=== PATIENT | male | born 2000 | race American Indian/Alaskan Native ===

== ENCOUNTER 2020-02-18 21:27 | Emergency (ER) | payer BC ==
[2020-02-18 21:36] VITALS: BP 143/87; PULSE 82
[2020-02-18] MEDS ORDERED: Ibuprofen 600 MG Tab PO ONE (21:55)
--- NOTE | 2020-02-18 21:56 | EDM.PDOC ---
ED HPI GENERAL MEDICAL PROBLEM - General Chief Complaint: Lower Extremity Injury/Pain Stated Complaint: RT FOOT PAIN Time Seen by Provider: 02/18/20 21:55 Source of Information: Reports: Patient History Limitations: Reports: No Limitations - History of Present Illness INITIAL COMMENTS - FREE TEXT/NARRATIVE: Patient comes emergency department today with complaints of an injury to his right foot. Approximately 1 hour prior to arrival the patient was jumping off the end of a dock when he landed on a pole the sole of his foot traverse leg along the mid forefoot on the sole of it. He has had some pain since that time. He denies any paresthesias. Denies any other injury other than to the mid sole of his foot. No ankle pain no other right lower extremity.. No paresthesias. He has not tried anything for pain. This happened about an hour prior to arrival. Right Foot Pain Score (Numeric/FACES): 4 - Related Data Allergies Allergy/AdvReac Type Severity Reaction Status Date / Time venom-honey bee Allergy Edema Verified 02/18/20 21:33 Home Meds: Home Meds . [No Known Home Meds] 01/13/15 [History] Past Medical History - Past Health History Medical/Surgical History: Denies Medical/Surgical History Social & Family History - Family History Family Medical History: Noncontributory - Tobacco Use Smoking Status *Q: Never Smoker - Caffeine Use Caffeine Use: Reports: Coffee, Energy Drinks, Soda - Recreational Drug Use Recreational Drug Use: No Review of Systems - Review of Systems Review Of Systems: Comprehensive ROS is negative, except as noted in HPI. ED EXAM, GENERAL - Physical Exam Exam: See Below Exam Limited By: No Limitations General Appearance: Alert, WD/WN, No Apparent Distress Respiratory/Chest: No Respiratory Distress Cardiovascular: Normal Peripheral Pulses Peripheral Pulses: 2+: Radial (L), Radial (R), Posterior Tibial (L), Posterior Tibial (R), Dorsalis Pedis (L), Dorsalis Pedis (R) Extremities: Normal Inspection (Really normal inspection of the right foot other than some tenderness along the first mid metatarsal region. There is no breaks in the skin. There is no overt bony deformity. There is no bruising swelling ecchymosis. Rest of the foot is atraumatic.), Normal Range of Motion Neurological: Alert, Oriented, Normal Cognition, No Motor/Sensory Deficits Skin Exam: Warm, Dry, Intact, Normal Color Course - Vital Signs Last Recorded V/S: Last Vital Signs Temp 98.0 F 02/18/20 21:33 Pulse 82 02/18/20 21:33 Resp 16 02/18/20 21:33 BP 143/87 H 02/18/20 21:33 Pulse Ox 98 02/18/20 21:33 - Orders/Labs/Meds Meds: Medications Discontinued Medications Generic Name Dose Route Start Last Admin Trade Name Kenrick PRN Reason Stop Dose Admin Ibuprofen 600 mg 02/18/20 21:55 02/18/20 22:26 Motrin PO 02/18/20 21:56 600 mg ONETIME ONE Administration - Radiology Interpretation Free Text/Narrative:: X-ray of the right foot per radiology shows bones and joints are normal soft tissues are normal no acute findings. - Re-Assessments/Exams Free Text/Narrative Re-Assessment/Exam: 02/18/20 22:38 Reviewed the negative x-ray with the patient. We will put him in a 3 inch Lemuel wrap for comfort. If he is not improving after a week he is to recheck. He is understanding this and his questions are answered. Departure - Departure Time of Disposition: 22:38 Disposition: Home, Self-Care 01 Clinical Impression: Sprain of foot, right Qualifiers: Encounter type: initial encounter Qualified Code(s): S93.601A - Unspecified sprain of right foot, initial encounter - Discharge Information Instructions: Elastic Bandage and RICE Therapy, How to Use Cold Therapy, Pain Medicine Instructions, [facility] Forms: ED Department Discharge Additional Instructions: Tylenol and or Ibuprofen as needed for pain. RICE therapy as per discharge instructions. Lemuel wrap for comfort. Follow up in 7 days if not improving sooner if worse. Sepsis Event Note (ED) - Evaluation Sepsis Screening Result: No Definite Risk - Focused Exam Vital Signs: Vital Signs Temp Pulse Resp BP Pulse Ox 02/18/20 21:33 98.0 F 82 16 143/87 H 98 - Assessment/Plan Assessment:: R foot sprain Plan: Tylenol and or Ibuprofen as needed for pain. RICE therapy as per discharge instructions. Lemuel wrap for comfort. Follow up in 7 days if not improving sooner if worse.
--- NOTE | 2020-02-18 22:15 | CR ---
PROCEDURE INFORMATION: Exam: XR Right Foot Complete Exam date and time: 02/18/2020 9:55 PM Age: 20 years old Clinical indication: Pain; Foot; Right; Additional info: Fall foot injury, medial right foot pain TECHNIQUE: Imaging protocol: XR Right foot. Views: 3 or more views. COMPARISON: CR Foot Comp Min 3V Rt 01/13/2015 9:46 PM FINDINGS: Bones/joints: Normal. Soft tissues: Normal. IMPRESSION: No acute findings.
== END 2020-02-18 22:45 | disposition home or self-care (01) ==
LOC: DL.ED 21:27
DX: S93.601A Unspecified sprain of right foot, initial encounter (principal); Z91.030 Bee allergy status; W17.89XA Other fall from one level to another, initial encounter
CPT/HCPCS: 73630; 99283; A9270; 99282

== ENCOUNTER 2025-01-08 16:21 | Emergency (ER) | payer SELFPAY ==
[2025-01-08 16:38] VITALS: BP 144/86; PULSE 83
[2025-01-08] MEDS: Diphtheria,Pertussis(Acell),Tetanus Vaccine 0.5 ML Syringe IM ONE (16:47)
== END 2025-01-08 16:44 | disposition home or self-care (01) ==
LOC: DL.ED 16:21
DX: S61.012A Laceration without foreign body of left thumb without damage to nail, initial encounter (principal); Z23 Encounter for immunization; Z91.030 Bee allergy status; W26.8XXA Contact with other sharp object(s), not elsewhere classified, initial encounter
CPT/HCPCS: 90471; 90715; 99282-25